=== PATIENT | female | born 1955 | race Caucasian/White ===

== ENCOUNTER → 2016-07-22 | Outpatient (CLI) | payer OTHER | LOC: CAT 15:57 | DX: Z13.6 Encounter for screening for cardiovascular disorders (principal) ==

== ENCOUNTER → 2017-06-10 | Outpatient (CLI) | payer OTHER | LOC: RAD 06-05 13:03 | DX: N60.81 Other benign mammary dysplasias of right breast (principal); N60.82 Other benign mammary dysplasias of left breast ==

== ENCOUNTER → 2018-06-18 | Outpatient (CLI) | payer OTHER | LOC: RAD 01:28 | DX: N63.24 Unspecified lump in the left breast, lower inner quadrant (principal); N63.14 Unspecified lump in the right breast, lower inner quadrant; D17.1 Benign lipomatous neoplasm of skin and subcutaneous tissue of trunk ==

== ENCOUNTER → 2019-06-20 | Outpatient (CLI) | payer OTHER | LOC: RAD 11:29 | DX: N60.99 Unspecified benign mammary dysplasia of unspecified breast (principal); R92.2 Inconclusive mammogram ==